=== PATIENT | female | born 1945 | race Caucasian/White ===

== ENCOUNTER 2017-05-11 10:47 | Inpatient (IN) ==
[2017-05-11 12:04] LABS: Basophils % 1.6 %; Eosinophils % 3.4 %; Immature Granulocytes % 0.4 % (0-4); Red Cell Distribution Width 16.4 % (11.5-14.5)
[2017-05-11 12:06] LABS: Basophils # 0.1 K/mcL (0.0-0.2); Eosinophils # 0.2 K/mcL (0.0-0.6); Hematocrit 40.1 % (35.3-44.9); Hemoglobin 12.5 g/dL (11.5-15.4); Immature Platelets 12.9 % (1.1-6.1); Lymphocytes # 0.4 K/mcL (0.6-4.6); Mean Corpuscular HGB Conc 31.2 g/dL (31.6-35.5); Mean Platelet Volume 13.4 fL (9.4-12.4); Monocytes # 0.7 K/mcL (0.0-1.3); Monocytes % 9.7 %; Neutrophils # 5.4 K/mcL (1.6-8.9); Red Blood Count 4.31 M/mcL (3.82-4.97); Segmented Neutrophils % 78.9 %
[2017-05-11] MEDS ORDERED: 0.9 % Sodium Chloride 250 ML IVC ONE (12:12)
[2017-05-11 12:15] LABS: Calcium 9.1 mg/dL (8.6-10.8); Potassium 5.1 mEq/L (3.5-4.5)
--- NOTE | 2017-05-11 12:16 | Emergency Department Note ---
START Narrative - START START: I examined this patient and my medical decision-making was reviewed with the Resident Physician. I agree with the documented findings, disposition and treatment plan as described except to the extent set forth below. Patient to ED with shortness of breath. Patient was listed under dialysis but they decided to the senior living to send her here instead. Patient states her shortness of breath feels better after her arrival. She is in no respiratory distress on exam. Lungs are diminished with rales. Plan. Cardiac workup. White blood cell count normal. Notified by nursing staff that her blood pressure drop. Systolic blood pressure in the 70s. No source of infection seen at this time. We will give her a small 250 bolus.
[2017-05-11 12:19] LABS: Platelet Count 75 K/mcL (140-400)
[2017-05-11] MEDS ORDERED: 0.9 % Sodium Chloride 250 ML IVC PRN (13:53)
--- NOTE | 2017-05-11 13:55 | Emergency Department Note ---
Disposition Clinical Impression: Elevated troponin Dyspnea Qualifiers: Dyspnea type: unspecified Qualified Code(s): R06.00 - Dyspnea, unspecified CHF (congestive heart failure) Qualifiers: Congestive heart failure type: systolic Congestive heart failure chronicity: unspecified congestive heart failure chronicity Qualified Code(s): I50.20 - Unspecified systolic (congestive) heart failure Disposition: Admitted As Inpatient Condition: Good SOB HPI - General Chief Complaint: ED Shortness of Breath/Dyspnea Stated Complaint: Dyspnea Time Seen by Provider: 05/11/17 10:50 Source: patient, EMS Limitations: no limitations Nursing Notes Reviewed: Yes Vital Signs Reviewed: Yes - History of Present Illness Patient presents for evaluation of shortness of breath. Patient is a dialysis patient that was going to be seen at a new dialysis center secondary to location and convenience. 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 The dialysis center was called and this is Dr. Kamara. The patient's shortness of breath was advised by the primary care physician to come to the emergency department for evaluation. She did not go to dialysis in order to come to the hospital for evaluation of hypoxia. On initial assessment patient has had a small increase in overall oxygen requirement. The patient has rails bilaterally. Mild pitting edema to the lower extremities. Patient is likely in fluid overload. Baseline labs and chest x-ray will be evaluated. - Related Data Home Medications Medication Instructions Recorded Confirmed Aspirin [Adult Low Dose Aspirin EC] 81 mg PO DAILY 02/14/15 05/11/17 Insulin Glargine,Hum.rec.anlog 10 unit SQ HS 02/14/15 05/11/17 [Lantus Solostar] Simvastatin [Zocor] 40 mg PO DAILY 02/14/15 05/11/17 Albuterol Sulfate [Proair Hfa] 2 puff BID PRN 02/17/15 05/11/17 Multivitamin/Iron/Folic Acid 1 each PO DAILY 02/17/15 05/11/17 [Centrum Complete Multivit Tab] Biotin 10 mg PO DAILY 05/11/17 05/11/17 Bumetanide [Bumex] 2 mg PO BID 05/11/17 05/11/17 Celecoxib [Celebrex] 100 mg PO BID 05/11/17 05/11/17 Insulin LISPRO [Humalog Kwikpen 6 unit SQ TID 05/11/17 05/11/17 U-100] Lactulose [Enulose] 30 ml PO BID 05/11/17 05/11/17 Lidocaine Patch [Lidoderm 5% patch] 1 each TP DAILY 05/11/17 05/11/17 Metoprolol XL (24 HR) Succ [Toprol 25 mg PO DAILY 05/11/17 05/11/17 XL] Midodrine HCl 10 mg PO DAILY 05/11/17 05/11/17 Ondansetron ODT [Zofran ODT] 4 mg PO BID PRN 05/11/17 05/11/17 Pantoprazole Sodium 40 mg PO DAILY 05/11/17 05/11/17 Sevelamer [Renvela] 800 mg PO TIDWM 05/11/17 05/11/17 Previous Rx's Medication Instructions Recorded HYDROcodone/Acet 5/325 mg [[place] 1 tab PO Q6H #14 tab 04/15/17 5-325 mg] Allergies Allergy/AdvReac Type Severity Reaction Status Date / Time Iodinated Contrast- Oral and Allergy Swelling Verified 02/17/15 11:02 IV Dye of [Iodinated Contrast Media - Lip/Tongue/Throat IV Dye] EUFEMIA Inhibitors AdvReac Hypotension Verified 02/17/15 11:02 adhesive tape AdvReac Rash Verified 02/17/15 11:05 Review of Systems: CONSTITUTIONAL: No weight loss, fever, chills, weakness or fatigue. HEENT: Eyes: No visual changes. Ears, Nose, Throat: No hearing loss, difficulty talking or unable to swallow. SKIN: No rash or itching. CARDIOVASCULAR: No chest pain, chest pressure or chest discomfort. No palpitations or edema. RESPIRATORY: Shortness of breath. GASTROINTESTINAL: No anorexia, nausea, vomiting or diarrhea. No abdominal pain or blood. GENITOURINARY: No burning on urination or hematuria. NEUROLOGICAL: No headache, dizziness, syncope, paralysis, ataxia, numbness or tingling in the extremities. No change in bowel or bladder control. MUSCULOSKELETAL: No muscle pain, back pain, joint pain or stiffness. Past Medical History - Past Medical History Medical history: Reports: arthritis, coronary artery disease, diabetes, dialysis , hypertension, renal disease, other Surgical history: Reports: coronary bypass (CABG), pacemaker/AICD, other ( Dialysis access) Psychiatric history: Reports: no psych history - Social History Smoking Status: Never smoker Smokeless Tobacco Status: No Alcohol use: Reports: none Drug use: Reports: none Physical Exam General: Well appearing, nontoxic, no acute distress Head: Normocephalic Atraumatic Eyes: PERRL, EOMI ENT: Airway patent, no stridor Neck: supple, no meningismus Chest: rales bilaterally. Cardiac: Regular rate and rhythm, no murmurs, rubs or gallops; mild pitting edema Abdomen: soft, nontender, nondistended; no guarding, rebound, or tenderness to percussion Musculoskeletal: Calves symmetric, nontender, no palpable cord Skin: No rash, normal skin tone Neuro: Alert and Oriented to person, place, and time; No focal deficit, CN 2-12 symmetric and intact - General Limitations: no limitations General appearance: alert Course - Reevaluation(s) Reevaluation #1: Patient has been treated with antibiotics secondary to previous line infection per patient. This line has been removed prior to being in the hospital.. Patient received a small fluid bolus in the emergency department. Her blood pressure is 98/52. - Consultations Consultation #1: Discussed with Dr. Kamara nurse practitioner who states that he will see the patient in conjunction with the hospitalist to admit to the hospitalist service. He has not actually seen the patient before. Consultation #2: Discussed with hospitalist, Dr. Miller, patient accepted for admission. Vital Signs Temperature 97.8 F 05/11/17 10:50 Pulse Rate 107 05/11/17 10:50 Respiratory Rate 20 05/11/17 10:50 Blood Pressure 122/106 05/11/17 10:50 O2 Sat by Pulse Oximetry 98 05/11/17 10:50 Temperature 98 F 05/11/17 18:29 Pulse Rate 97 05/11/17 14:00 Respiratory Rate 22 05/11/17 18:29 Blood Pressure 98/47 05/11/17 18:29 O2 Sat by Pulse Oximetry 99 05/11/17 14:00 Oxygen Delivery Oxygen Delivery Nasal Cannula Shortness of Breath/Dyspnea - Lab Data Result diagrams: 05/11/17 11:50 05/11/17 11:50 Lab Results 05/11/17 05/11/17 05/11/17 Range/Units 11:50 11:50 11:50 WBC 6.8 (4.3-11.1) K/mcL RBC 4.31 (3.82-4.97) M/mcL Hgb 12.5 (11.5-15.4) g/dL Hct 40.1 (35.3-44.9) % MCV 93.0 (83.0-100.0) fL MCH 29.0 (28.0-33.3) pg MCHC 31.2 L (31.6-35.5) g/dL RDW 16.4 H (11.5-14.5) % Plt Count 75 L (140-400) K/mcL MPV 13.4 H (9.4-12.4) fL Immature Gran % 0.4 (0-4) % Seg Neutrophils % 78.9 % Lymphocytes % 6.0 % Monocytes % 9.7 % Eosinophils % 3.4 % Basophils % 1.6 % Neutrophils # 5.4 (1.6-8.9) K/mcL Lymphocytes # 0.4 L (0.6-4.6) K/mcL Monocytes # 0.7 (0.0-1.3) K/mcL Eosinophils # 0.2 (0.0-0.6) K/mcL Basophils # 0.1 (0.0-0.2) K/mcL Immature Plt Fraction 12.9 H (1.1-6.1) % Sodium 139 (136-145) mEq/L Potassium 5.1 H (3.5-4.5) mEq/L Chloride 102 (98-109) mEq/L Carbon Dioxide 24 (19-29) mEq/L BUN 34 H (7-20) mg/dL Creatinine 4.69 H (0.57-1.11) mg/dL Est GFR ( Amer) 11 L (> 60) Est GFR (Non-Af Amer) 9 L (> 60) BUN/Creatinine Ratio 7 (6-26) Glucose 96 (70-99) mg/dL Calculated Osmolality 295 (280-300) Calcium 9.1 (8.6-10.8) mg/dL Troponin I 0.45 H* (0-0.03) ng/mL B-Natriuretic Peptide (0-100) pg/mL Hep Bs Antigen (Nonreactive) Hep Bs Antibody mIU/mL 05/11/17 05/11/17 Range/Units 11:50 14:22 WBC (4.3-11.1) K/mcL RBC (3.82-4.97) M/mcL Hgb (11.5-15.4) g/dL Hct (35.3-44.9) % MCV (83.0-100.0) fL MCH (28.0-33.3) pg MCHC (31.6-35.5) g/dL RDW (11.5-14.5) % Plt Count (140-400) K/mcL MPV (9.4-12.4) fL Immature Gran % (0-4) % Seg Neutrophils % % Lymphocytes % % Monocytes % % Eosinophils % % Basophils % % Neutrophils # (1.6-8.9) K/mcL Lymphocytes # (0.6-4.6) K/mcL Monocytes # (0.0-1.3) K/mcL Eosinophils # (0.0-0.6) K/mcL Basophils # (0.0-0.2) K/mcL Immature Plt Fraction (1.1-6.1) % Sodium (136-145) mEq/L Potassium (3.5-4.5) mEq/L Chloride (98-109) mEq/L Carbon Dioxide (19-29) mEq/L BUN (7-20) mg/dL Creatinine (0.57-1.11) mg/dL Est GFR ( Amer) (> 60) Est GFR (Non-Af Amer) (> 60) BUN/Creatinine Ratio (6-26) Glucose (70-99) mg/dL Calculated Osmolality (280-300) Calcium (8.6-10.8) mg/dL Troponin I (0-0.03) ng/mL B-Natriuretic Peptide 3725 H (0-100) pg/mL Hep Bs Antigen Nonreactive (Nonreactive) Hep Bs Antibody 0.24 mIU/mL
[2017-05-11] MEDS ORDERED: 0.9 % Sodium Chloride 1,000 ML PRIME SCH (14:00)
[2017-05-11] MEDS ORDERED: CeFAZolin Syr 2,000MG/20 ML 2,000 MG/20 ML SYRINGE IVPB SCH (14:30)
[2017-05-11] MEDS ORDERED: D5% in Water 1,000 ML IVC PRN (14:45)
[2017-05-11] MEDS ORDERED: Naloxone 0.4 MG/ML INJ IVP PRN (14:45)
[2017-05-11] MEDS ORDERED: Dextrose Gel 15 GM PO PRN ×2 (14:45)
[2017-05-11] MEDS ORDERED: *HR* Dextrose 50 % in Water (Syg) 50 ML SYRINGE IVP PRN (14:45)
--- NOTE | 2017-05-11 14:54 | Internal Med History&Physical ---
<Bull Shetty - Last Filed: 05/11/17 16:29> Date of Encounter: 05/11/17 Time of Encounter: 14:51 Assessment and Plan (1) CKD (chronic kidney disease) requiring chronic dialysis Current visit: No Status: Acute H/O ESRD requiring hemodialysis. She is a M,W,F HD patient. She presents today in fluid overload with pulmonary vascular congestion and BL pleural effusions, as well as BLE 1+ pitting edema. D/t these finding she will need HD today. Cr. 4.[address] Ni- plan is for HD today; both hospitalist and Nephrology will follow throughout hospital course Avoid additional nephrotoxins Consult PT/OT, and SS for assessment of functional capacity and return to short term rehab CBC, BMP in the am Further manage volume status with 2l fluid restriction; strict I&O; hold bumex for now Continue to closely monitor BP d/t hypotension upon arrival to ED today PT/OT, SS consulted to assist with transition of care following hospital stay (2) CHF (congestive heart failure) Current visit: No Status: Acute H/O CHF known EF of 20%. Has not had a cardiac workup in the last few years. She presents today with pulmonary vascular congestion and small BL pleural effusions. She reports that she has been having increasing SOB over the last few weeks. SOB has improved since arrival to ED with increased oxygen support. Obtain TTE for further evaluation; last KASSY was in 2006. Hold on diuresis for now; hemodialysis this afternoon Continuous tele, spo2 monitoring BMP CBC in am Qualifiers: Congestive heart failure type: systolic Congestive heart failure chronicity : unspecified congestive heart failure chronicity Qualified Code(s): I50.20 - Unspecified systolic (congestive) heart failure (3) Dyspnea Current visit: No Status: Acute Dyspnea began at approximately 0800 this morning. Has improved since arrival to ED. CXR revealed pulmonary vascular congestion with small BL pleural effusions concerning for CHF. She is now resting comfortably on 2LNC. Continue to monitor respiratory status and offer respiratory support PRN with goal to maintain O2 sats greater than 92%. See further plan above Qualifiers: Dyspnea type: unspecified Qualified Code(s): R06.00 - Dyspnea, unspecified (4) Hypoxia Current visit: Yes Status: Acute Continues to require 2LNC for respiratory support. Maintaining O2 saturation of 99%. Lungs are clear and diminished with rales in BL posterior bases. Continue to monitor, I expect that she will improve with removal of excessive fluid. (5) Hypotension Current visit: No Status: Acute Hypotensive upon arrival to ED with SBP in the 80's. She received a 250cc NS bolus and SBP is now trending in the 90's. Patient reports that she is chronically hypotensive. Continue to monitor. She is currently hemodynamically stable at her reported baseline. I will hold BB at this time d/ t SBP upon arrival. Qualifiers: Hypotension type: unspecified hypotension type Qualified Code(s): I95.9 - Hypotension, unspecified (6) Hyperkalemia Current visit: No Status: Acute hyperkalemia secondary to ESRD. K+5.1 on todays metabolic panel. She will receive HD this afternoon. Continues to be NSR. Recheck metabolic panel in the am. (7) Elevated troponin Current visit: No Status: Acute Likely elevated d/t CKD. No c/o CP or pressure however d/t risk factors, and c/ o SOB will continue to trend troponins. (8) DM (diabetes mellitus) Current visit: No Status: Acute Continue basal insulin at home dose. Start LSSIC with AC/HS accucheck and diabetic/renal diet. Qualifiers: Diabetes mellitus type: type 2 Diabetes mellitus complication status: without complication Diabetes mellitus assisted insulin use: unspecified intermediate accountant insulin use status Qualified Code(s): E11.9 - Type 2 diabetes mellitus without complications (9) CAD (coronary artery disease) Current visit: No Status: Acute Continue ASA, BB, plavix Qualifiers: Coronary Disease-Associated Artery/Lesion type: bypass graft [place] vs. transplanted heart: [place] heart Associated angina: without angina Qualified Code(s): I25.810 - Atherosclerosis of coronary artery bypass graft(s) without angina pectoris (10) Streptococcal infection, unspecified site Current visit: Yes Status: Acute She is reporting a streptococcal infection in the spine but she is unsure of location. She was recently at [facility] and was being treated with Ancef 2gm, on tuesday and tuesday with hemodialysis and 3gm on tuesday with HD. I have requested a release of medical records for further review. She may need an ID consult while inpatient to further assist with treatment and management. As of this time nephrology has ordered the 2gm ancef dose with HD. She is supposed to get ancef with HD until May and cefdinir 300 mg twice a day on days she does not and hemodialysis until May per [facility] orders. She does not have any leukocytosis and does not appear toxic. (11) DVT prophylaxis Current visit: Yes Status: Acute EPCD's Internal Medicine - H&P: HPI Chief complaint: SOB Admitted From: Home Plans for Post Hospital Care: Home History of present illness: Ms. Andres is a 71 year old female with a PMH of arthritis, CAD, DM, HD, HTN , ESRD, prior end STEMI, CABG, pacer with AICD and congestive heart failure. She presented to [facility] today with shortness of breath with began approximately 0800 this morning. She has noticed that over the last couple of weeks she has had increasing shortness of breath but has been tolerable and has not required oxygen support. However, this morning she woke up and was short of breath and hypoxic requiring oxygen support to maintain O2 saturations. She denies any fever, chills, chest pain, abdominal pain, extremity swelling, cough. She admits to increasing fatigue, dyspnea and orthopnea. She is a hemodialysis patient was previously being treated in [place] where she received her last hemodialysis on Tuesday this week. She has recently changed to Dr. Kamara for nephrology but she reports that she has not had her initial visit yet. Today was supposed with a first visit however due to shortness of breath she came to the ED. Workup reveals pulmonary vascular congestion and small bilateral pleural effusions. Additionally she had 1+ pitting edema bilateral lower extremities. She appears to be in fluid overload, congestive heart failure. Additionally, she notes that she was recently treated at [facility] for streptococcal infection in her spine she is unsure location. Prior to this event she was ambulatory with a walker, however she is not able to walk since and has been an inpatient short-term rehabilitation. She is supposed to be on long-term antiobiotics with Ancef 2gm on Tue, Tue, and 3gm on Tuesday with HD. Past Med Surg Social Fam HX - Past Medical History Medical history: arthritis, coronary artery disease, diabetes, dialysis, hypertension, renal disease, other Psychiatric history: no psych history - Past Surgical History Surgical History: coronary bypass (CABG), pacemaker/AICD, other (Dialysis access ) - Social History Smoking Status: Never smoker Smokeless Tobacco Status: No Alcohol use: none Drug use: none - Family History Mother Hx Family Cardiac Disorders: Yes (CAD) Internal Medicine - H&P: Meds Aspirin [Adult Low Dose Aspirin EC] 81 mg PO DAILY 02/14/15 [History] Insulin Glargine,Hum.rec.anlog [Lantus Solostar] 10 unit SQ HS 02/14/15 [History ] Simvastatin [Zocor] 40 mg PO DAILY 02/14/15 [History] Albuterol Sulfate [Proair Hfa] 2 puff BID PRN 02/17/15 [History] Multivitamin/Iron/Folic Acid [Centrum Complete Multivit Tab] 1 each PO DAILY [History] HYDROcodone/Acet 5/325 mg [[place] 5-325 mg] 1 tab PO Q6H #14 tab 04/15/17 [Rx] Biotin 10 mg PO DAILY 05/11/17 [History] Bumetanide [Bumex] 2 mg PO BID 05/11/17 [History] Celecoxib [Celebrex] 100 mg PO BID 05/11/17 [History] Insulin LISPRO [Humalog Kwikpen U-100] 6 unit SQ TID 05/11/17 [History] Lactulose [Enulose] 30 ml PO BID 05/11/17 [History] Lidocaine Patch [Lidoderm 5% patch] 1 each TP DAILY 05/11/17 [History] Metoprolol XL (24 HR) Succ [Toprol XL] 25 mg PO DAILY 05/11/17 [History] Midodrine HCl 10 mg PO DAILY 05/11/17 [History] Ondansetron ODT [Zofran ODT] 4 mg PO BID PRN 05/11/17 [History] Pantoprazole Sodium 40 mg PO DAILY 05/11/17 [History] Sevelamer [Renvela] 800 mg PO TIDWM 05/11/17 [History] 3 Allergy/AdvReac Type Severity Reaction Status Date / Time Iodinated Contrast- Oral and Allergy Swelling Verified 02/17/15 11:02 IV Dye of [Iodinated Contrast Media - Lip/Tongue/Throat IV Dye] EUFEMIA Inhibitors AdvReac Hypotension Verified 02/17/15 11:02 adhesive tape AdvReac Rash Verified 02/17/15 11:05 All Systems PM: A 10-system review of systems was performed and is negative for pertinent findings except as documented above in the HPI. - Constitutional Constitutional: fatigue, weakness, no chills, no fever(s), no weight gain, no weight loss - Cardiovascular Cardiovascular ROS IM: dyspnea, orthopnea, no chest pain, no diaphoresis, no lightheadedness, no palpitations, no syncope - Respiratory Respiratory: dyspnea, no cough, no wheezing, no chest congestion, no excessive phlegm production - Gastrointestinal Gastrointestinal: no abdominal pain, no diarrhea, no hematemesis, no hematochezia, no melena, no nausea, no vomiting - Genitourinary Genitourinary: other (ANURIC) - Musculoskeletal Musculoskeletal ROS IM: arthralgias, myalgias (LEFT HIP) - Integumentary Integumentary IM: erythema Additional comments: BLE - Neurological Neurological ROS: weakness, no dizziness, no headache(s) - Constitutional Vitals: Temp Pulse Resp BP Pulse Ox 97.8 F 97 16 93/59 99 05/11/17 10:50 05/11/17 14:00 05/11/17 14:00 05/11/17 14:00 05/11/17 14:00 General appearance: Present: cooperative, mild distress, A&O X 3, answers questions appropriately - Head Head exam: Present: atraumatic, normocephalic - Neck Neck exam general surgery: Present: supple, trachea midline. Absent: lymphadenopathy - Respiratory Respiratory exam: Present: CTAB, rales (FINE RALES POSTERIOR BILATERAL BASES). Absent: accessory muscle use, rhonchi, wheezes - Cardiovascular Cardiovascular exam: Present: RRR, +S1, +S2. Absent: diastolic murmur, gallop, rubs, systolic murmur - GI/Abdominal GI/Abdominal exam: Present: normal bowel sounds, soft, no peritoneal signs. Absent: distended, firm, guarding, tenderness - Extremities Exam Extremities exam: Present: pedal edema (BLE 2+), warm, radial pulses palpable and symmetrical (1+). Absent: calf tenderness, normal capillary refill ( SLUGGISH), tenderness - Expanded Lower Extremities Exam Lower Leg exam: Present: erythema, swelling (DRY AND SCALY). Absent: tenderness Internal Med - H&P Results - Labs CBC & Chem 7: 05/11/17 11:50 05/11/17 11:50 - Diagnostic Studies Chest x-ray Status: image reviewed by me Additional comments: Cardiomegaly and pulmonary edema; small bilateral pleural effusion with concerns for CHF <Randal Miller - Last Filed: 05/12/17 07:37> Date of Encounter: 05/11/17 Internal Medicine - H&P: HPI History of present illness: Ms. Andres is a 71 year old female All Systems PM: A 10-system review of systems was performed and is negative for pertinent findings except as documented above in the HPI. - Constitutional Vitals: Temp Pulse Resp BP Pulse Ox 97.6 F 73 20 103/57 98 05/12/17 07:09 05/12/17 07:09 05/12/17 07:09 05/12/17 07:09 05/12/17 07:09 Internal Med - H&P Results - Labs CBC & Chem 7: 05/12/17 00:12 05/12/17 00:12 Labs: Short CBC 05/12/17 Range/Units 00:12 WBC 7.8 (4.3-11.1) K/mcL Hgb 12.0 (11.5-15.4) g/dL Hct 38.3 (35.3-44.9) % Plt Count 70 L (140-400) K/mcL BMP 05/12/17 00:12 Sodium 137 Potassium 4.4 Chloride 98 Carbon Dioxide 27 BUN 25 H Creatinine 3.86 H Glucose 93 Calcium 9.3 Cardiac Enzymes 05/11/17 05/12/17 05/12/17 Range/Units 17:45 00:12 06:36 Troponin I 0.68 H* 0.73 H* 0.76 H* (0-0.03) ng/mL - Attending Attestation 71yo female who presented with hx of ESRD on HD who presented with SOB, pulm vascular congestion due to being fluid overloaded. Nephrology as been consulted for dialysis, We will resume home meds as deemed appropriated. I have examined patient and agree with REGULATORY PRODUCT MANAGER documentation.
[2017-05-11 15:04] LABS: Hepatitis B Surface Antibody 0.24 mIU/mL; Hepatitis B Surface Antigen Nonreactive (Nonreactive)
--- NOTE | 2017-05-11 15:09 | Electrocardiograph Report ---
[facility] Test Date: 2017-05-11 Pat Name: Sonya Andres Department: [id number] Room: 2A13 Gender: F Electrical Software Engineer: : [id number] Requested By: Aiden Ramirez Order Number: [id number] Reading MD: Long Singer MD Measurements Intervals [place] Rate: 111 P: OR: 0 QRS: 270 QRSD: 165 T: 73 QT: 412 QTc: 478 Interpretive Statements ATRIAL FIBRILLATION WITH RAPID VENTRICULAR RESPONSE WITH ABERRANT CONDUCTION OR VENTRICULAR PREMATURE COMPLEXES MARKED RIGHT AXIS DEVIATION [QRS AXIS > 100] RIGHT BUNDLE BRANCH BLOCK [120+ ms QRS DURATION, UPRIGHT V1, 40+ ms S IN I/aVL/V4/V5/V6] INFERIOR MYOCARDIAL INFARCTION [40+ ms Q WAVE AND/OR ST/T ABNORMALITY IN II/aVF], OF INDETERMINATE AGE ANTEROLATERAL MYOCARDIAL INFARCTION [40+ ms Q WAVE IN I/aVL/V3-V6], Electronically Signed On 05-11-2017 15:08:36 EST by Long Singer MD
[2017-05-11] MEDS ORDERED: Ondansetron ODT 4 MG TAB.RAPDIS PO PRN (15:42)
[2017-05-11] MEDS: *HR* HYDROcodone/Acet 5/325 mg TABLET PO SCH ×2 (17:33→20:30)
[2017-05-11] MEDS: Insulin LISPRO 300 UNITS/3 ML VIAL SQ SCH ×2 (17:50→23:13)
[2017-05-11] MEDS ORDERED: ceFAZolin 2,000 MG in Water for inj. (sterile) 20 ML IVP SCH (19:45)
[2017-05-11] MEDS: Celecoxib 100 MG CAPSULE PO SCH (20:30)
[2017-05-11] MEDS: Lactulose Oral Soln 20 GM/30 ML UDC PO SCH (20:30)
[2017-05-11] MEDS: Insulin DETEMIR 100 UNIT/ML X5UNITS SQ SCH (20:31)
[2017-05-11] MEDS ORDERED: CeFAZolin Premix DUPLEX 2,000 MG/50 ML BAG IVPB ONE (23:00)
[2017-05-12 00:17] LABS: Hematocrit 38.3 % (35.3-44.9); Mean Corpuscular HGB Conc 31.3 g/dL (31.6-35.5); Mean Corpuscular Hemoglobin 29.1 pg (28.0-33.3); Mean Platelet Volume 12.9 fL (9.4-12.4); Red Blood Count 4.12 M/mcL (3.82-4.97); Red Cell Distribution Width 16.5 % (11.5-14.5)
[2017-05-12 00:19] LABS: Platelet Count 70 K/mcL (140-400)
[2017-05-12 00:29] LABS: Calcium 9.3 mg/dL (8.6-10.8); Potassium 4.4 mEq/L (3.5-4.5)
[2017-05-12] MEDS: *HR* HYDROcodone/Acet 5/325 mg TABLET PO SCH ×2 (03:04→09:20)
[2017-05-12] MEDS: Insulin LISPRO 300 UNITS/3 ML VIAL SQ SCH ×4 (07:30→20:38)
--- NOTE | 2017-05-12 08:58 | Nephrology Consult Note ---
Date of Encounter: 05/12/17 Time of Encounter: 08:20 Assessment and Plan (1) ESRD (end stage renal disease) on dialysis Current Visit: Yes Status: Acute ESRD-chronic HD on MWF schedule. No HD today. CHF, had HD yesterday. Elevated troponins. KASSY today. 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 (2) Streptococcal infection, unspecified site Current Visit: Yes Status: Acute History of Present Illness - Reason for Consult end stage renal disease - History of Present Illness Ms. Andres is a 71 year old female with ESRD who is new to and was to start HD on a MWF schedule at [facility] yesterday due to location of current nursing facility. Other PMH- arthritis, coronary artery disease, diabetes, dialysis, hypertension, CABG, pacemaker/AICD, Dialysis access. However , developed shortness of breath and chest discomfort and was transported to [place]. CXR-cardiomegaly, pulmonary vascular congestion, small bilateral pleural effusions. Troponins 0.45. Admitted with CHF, fluid overload and had HD yesterday. She recently treated at [facility] for spinal infection- streptococcal. Currently on Ancef on HD days and Ceftinir on non HD days. This morning she is alert. States she never had chest discomfort, just shortness of breath and remains somewhat tachypneic this morning. She states back pain ongoing. Transport in to take patient for KASSY. Past Med Surg Social Fam HX - Past Medical History Medical history: arthritis, coronary artery disease, diabetes, dialysis, hypertension, renal disease, other Psychiatric history: no psych history - Past Surgical History Surgical History: coronary bypass (CABG), pacemaker/AICD, other (Dialysis access ) - Social History Smoking Status: Never smoker Smokeless Tobacco Status: No Alcohol use: none Drug use: none - Family History Mother Hx Family Cardiac Disorders: Yes (CAD) Medications and Allergies Aspirin [Adult Low Dose Aspirin EC] 81 mg PO DAILY 02/14/15 [History] Insulin Glargine,Hum.rec.anlog [Lantus Solostar] 10 unit SQ HS 02/14/15 [History ] Simvastatin [Zocor] 40 mg PO DAILY 02/14/15 [History] Albuterol Sulfate [Proair Hfa] 2 puff BID PRN 02/17/15 [History] Multivitamin/Iron/Folic Acid [Centrum Complete Multivit Tab] 1 each PO DAILY [History] HYDROcodone/Acet 5/325 mg [[place] 5-325 mg] 1 tab PO Q6H #14 tab 04/15/17 [Rx] Biotin 10 mg PO DAILY 05/11/17 [History] Bumetanide [Bumex] 2 mg PO BID 05/11/17 [History] Celecoxib [Celebrex] 100 mg PO BID 05/11/17 [History] Insulin LISPRO [Humalog Kwikpen U-100] 6 unit SQ TID 05/11/17 [History] Lactulose [Enulose] 30 ml PO BID 05/11/17 [History] Lidocaine Patch [Lidoderm 5% patch] 1 each TP DAILY 05/11/17 [History] Metoprolol XL (24 HR) Succ [Toprol XL] 25 mg PO DAILY 05/11/17 [History] Midodrine HCl 10 mg PO DAILY 05/11/17 [History] Ondansetron ODT [Zofran ODT] 4 mg PO BID PRN 05/11/17 [History] Pantoprazole Sodium 40 mg PO DAILY 05/11/17 [History] Sevelamer [Renvela] 800 mg PO TIDWM 05/11/17 [History] 3 Allergy/AdvReac Type Severity Reaction Status Date / Time Iodinated Contrast- Oral and Allergy Swelling Verified 02/17/15 11:02 IV Dye of [Iodinated Contrast Media - Lip/Tongue/Throat IV Dye] EUFEMIA Inhibitors AdvReac Hypotension Verified 02/17/15 11:02 adhesive tape AdvReac Rash Verified 02/17/15 11:05 Review of Systems All Systems: reviewed and no additional remarkable complaints except as stated Exam - Vital Signs Vital signs: Initial Vital Signs Temp Pulse Resp BP Pulse Ox 97.8 F 107 20 122/106 98 05/11/17 10:50 05/11/17 10:50 05/11/17 10:50 05/11/17 10:50 05/11/17 10:50 Vital Signs - Last 8 Hours Temp Pulse Resp BP Pulse Ox 05/12/17 07:09 97.6 F 73 20 103/57 98 05/12/17 03:38 97.2 F L 67 15 95/61 97 Intake and Output 05/11/17 05/12/17 05/12/17 23:59 07:59 15:59 Intake Total 120 / 120 Output Total 2099 Balance -1979 Intake: Oral 120 / 120 Output: Urine 0 / 0 Total Dialysis (HD) Output 2099 Other: Stool Size Small Large Stool Consistency formed formed Stool Color Brown Brown Dark Red Blood # Bowel Movements 1 # Bowel Movement Diapers 1 Weight 86.7 kg Blood Glucose* 104 60 Hemodialysis Net Fluid Removed 1500 (mL) Patient Weight 05/12/17 23:59 Weight 86.7 kg - General Appearance General appearance: well-developed, well-nourished, appears started age, obese EENT: mucous membranes moist Neck: no JVD Respiratory: rhonchi Cardiology: edema, regular rate, regular rhythm Gastrointestinal: normoactive bowel sounds, no tenderness, no guarding Integumentary: warm and dry Neurologic: alert and oriented x3 Psychiatric: mood/affect appropriate, cooperative Results - Lab Results 05/12/17 00:12 05/12/17 00:12 Most recent lab results Calcium 9.3 mg/dL (8.6-10.8) 05/12/17 00:12 Consult Discharge Plan - Plan Referrals: Luz Maria Roberts DO [Primary Care Provider] - (Patient will follow up with ECF PCP)
[2017-05-12] MEDS ORDERED: Cefdinir 300 MG CAPSULE PO SCH ×2 (09:00)
[2017-05-12] MEDS ORDERED: BIOTIN 10 MG PO SCH (09:00)
[2017-05-12] MEDS ORDERED: [UNRECOGNIZED DRUG - OTHER] PO SCH (09:00)
[2017-05-12] MEDS: Multivit/Ca/Min/Fe/FA 1 TAB TABLET PO SCH (09:20)
[2017-05-12] MEDS: Celecoxib 100 MG CAPSULE PO SCH (09:20)
[2017-05-12] MEDS: Aspirin Enteric Coated 81 MG Tablet PO SCH (09:21)
[2017-05-12] MEDS: Lactulose Oral Soln 20 GM/30 ML UDC PO SCH (09:21)
--- NOTE | 2017-05-12 09:37 | Internal Med Progress Note ---
<Gian Shelby - Last Filed: 05/12/17 09:31> Date of Encounter: 05/12/17 Time of Encounter: 08:15 - Constitutional Vitals: Temp Pulse Resp BP Pulse Ox 97.6 F 73 20 103/57 98 05/12/17 07:09 05/12/17 07:09 05/12/17 07:09 05/12/17 07:09 05/12/17 07:09 General appearance: Present: cooperative, mild distress, A&O X 3, answers questions appropriately Internal Medicine: Result - Labs CBC & Chem 7: 05/12/17 00:12 05/12/17 00:12 Labs: Short CBC 05/12/17 Range/Units 00:12 WBC 7.8 (4.3-11.1) K/mcL Hgb 12.0 (11.5-15.4) g/dL Hct 38.3 (35.3-44.9) % Plt Count 70 L (140-400) K/mcL BMP 05/12/17 00:12 Sodium 137 Potassium 4.4 Chloride 98 Carbon Dioxide 27 BUN 25 H Creatinine 3.86 H Glucose 93 Calcium 9.3 Cardiac Enzymes 05/11/17 05/12/17 05/12/17 Range/Units 17:45 00:12 06:36 Troponin I 0.68 H* 0.73 H* 0.76 H* (0-0.03) ng/mL Consult Discharge Plan - Plan Referrals: Luz Maria Roberts DO [Primary Care Provider] - (Patient will follow up with ECF PCP) <Dustin Kang - Last Filed: 05/12/17 15:07> Date of Encounter: 05/12/17 - Assessment and plan (1) CHF (congestive heart failure) Current Visit: Yes Status: Acute Assessment and plan: acute pulmonary edema 2ry to volume overload, acute systolic CHF exacerbation , valvular disease uses Bumex at home removed volume with HD fluid restriction BMP>3000 ECHO: LVEF 25%. Severe LV systolic dysfunction. Atypical septal motion consistent with paced rhythm. Indeterminate diastolic function. Moderately enlarged RV with mild-moderate reduction in function. Severe tricuspid regurgitation. Moderate mitral regurgitation. Mild-moderate pulmonic regurgitation. Probably underestimated RVSP, 32 mmHg. A device lead was visualized in the right atrium and right ventricle. Pleural effusion. Qualifiers: Congestive heart failure type: systolic Congestive heart failure chronicity : acute on chronic Qualified Code(s): I50.23 - Acute on chronic systolic ( congestive) heart failure (2) Elevated troponin Current Visit: Yes Status: Acute Assessment and plan: likely secondary to demand ischemia cardiology recommendations appreciated in the setting of Hx of prior stents and ischemic CMP resume metoprolol continue ASA denies CP (3) Streptococcal infection, unspecified site Current Visit: Yes Status: Acute Assessment and plan: treptococcal infection in the spine, possible discitis. She was recently at [place] and was being treated with Ancef 2gm, on tuesday and tuesday with hemodialysis and 3gm on tuesday with HD also 2gm of ancef dose with HD. She is supposed to get ancef with HD until May and cefdinir 300 mg twice a day on days she does not have hemodialysis until May per [facility] orders. (4) Breast cancer Current Visit: No Status: Acute Qualifiers: Breast location: unspecified site of breast Estrogen receptor status: unspecified Patient sex: female Laterality: unspecified laterality Qualified Code(s): C50.919 - Malignant neoplasm of unspecified site of unspecified female breast (5) CAD (coronary artery disease) Current Visit: No Status: Acute Qualifiers: Coronary Disease-Associated Artery/Lesion type: bypass graft [place] vs. transplanted heart: [place] heart Associated angina: without angina Qualified Code(s): I25.810 - Atherosclerosis of coronary artery bypass graft(s) without angina pectoris (6) ESRD (end stage renal disease) on dialysis Current Visit: Yes Status: Acute Assessment and plan: followed by Dr Ni - Subjective Interval history: Stable, denies any chest pain, no abdominal pain, makes a very little amount of urine, feels less short of breath, no fevers overnight - Constitutional Vitals: Temp Pulse Resp BP Pulse Ox 97.8 F 99 20 100/64 95 05/12/17 11:04 05/12/17 11:04 05/12/17 11:04 05/12/17 11:04 05/12/17 11:04 - Head Head exam: Present: atraumatic, normocephalic - Eye Eye exam: Present: PERRL, conjuntiva pink, sclera anicteric Pupils: Present: PERRL - Neck Neck exam general surgery: Present: supple, trachea midline. Absent: lymphadenopathy - Respiratory Respiratory exam: Present: decreased breath sounds (diminished breath sound, no wheezing), CTAB. Absent: accessory muscle use, rales, rhonchi - Cardiovascular Cardiovascular exam: Present: RRR, +S1, +S2. Absent: diastolic murmur, gallop, rubs, systolic murmur - GI/Abdominal GI/Abdominal exam: Present: normal bowel sounds, soft, no peritoneal signs. Absent: distended, tenderness - Extremities Exam Extremities exam: Present: warm, radial pulses palpable and symmetrical. Absent : calf tenderness, cyanotic, pedal edema Additional comments: left upper extremity AV fistula - Neurological Exam Neurological exam: Present: CN II-XII intact, oriented X3, no focal deficits. Absent: pronater drift, facial droop, speech deficit - Skin Skin exam: Present: dry, intact Internal Medicine: Result - Labs CBC & Chem 7: 05/12/17 00:12 05/12/17 00:12 Labs: Short CBC 05/12/17 Range/Units 00:12 WBC 7.8 (4.3-11.1) K/mcL Hgb 12.0 (11.5-15.4) g/dL Hct 38.3 (35.3-44.9) % Plt Count 70 L (140-400) K/mcL BMP 05/12/17 00:12 Sodium 137 Potassium 4.4 Chloride 98 Carbon Dioxide 27 BUN 25 H Creatinine 3.86 H Glucose 93 Calcium 9.3 Cardiac Enzymes 05/11/17 05/12/17 05/12/17 Range/Units 17:45 00:12 06:36 Troponin I 0.68 H* 0.73 H* 0.76 H* (0-0.03) ng/mL - Impressions Impressions Echocardiogram 05/12/17 15:41 Impressions: LVEF 25%. Severe LV systolic dysfunction. Atypical septal motion consistent with paced rhythm. Indeterminate diastolic function. Moderately enlarged RV with mild-moderate reduction in function. Severe tricuspid regurgitation. Moderate mitral regurgitation. Mild-moderate pulmonic regurgitation. Probably underestimated RVSP, 32 mmHg. A device lead was visualized in the right atrium and right ventricle. Pleural effusion. No prior echo for comparison. Left Ventricular Wall Motion: Rest Echo Findings The apex, apical inferior, mid inferior, basal inferior, apical anterior, mid anterior, basal anterior, apical lateral, mid anterior lateral, basal anterior lateral, mid inferior lateral and basal inferior lateral maldonado were hypokinetic. The apical septal, mid inferior septal, basal inferior septal, mid anterior septal and basal anterior septal maldonado were dyskinetic. Findings: Study Quality * Technically challenging windows. ECG Findings * Paced rhythm. Left Ventricle * Atypical septal motion consistent with paced rhythm. * Normal LV size and wall thickness. * Indeterminate diastolic function. * LVEF 25%. Right Ventricle * Moderately enlarged with mild-moderate reduction in function. Left Atrium * Moderately-severely enlarged. Right Atrium * Severely dilated right atrium. Aortic Valve * No aortic regurgitation. * Trileaflet aortic valve. * No aortic stenosis. Tricuspid Valve * Normal tricuspid valve structure. * Severe tricuspid regurgitation. * No pulmonary hypertension. * Estimated RA pressure is 8 mmHg. * Estimated RVSP is 32 mmHg. Pulmonic Valve * Pulmonic valve is not well visualized. * No pulmonic stenosis. * Mild-moderate pulmonic regurgitation. Pulmonary Artery * Pulmonary artery not well visualized. Aorta * Normally sized aortic root. Pericardium * There is a trivial pericardial effusion present. Device lead * A device lead was visualized in the right atrium and right ventricle. Mitral Valve * Moderate mitral regurgitation. * No mitral stenosis. * Mildly thickened mitral valve leaflets. Interatrial Septum * No evidence of PFO by color Doppler. IVC * The IVC is dilated. * < 50% respiratory change.
[2017-05-12] MEDS ORDERED: *HR* HYDROcodone/Acet 5/325 mg TABLET PO PRN ×2 (11:41→14:15)
[2017-05-12] MEDS: Acetaminophen 325 MG TABLET PO PRN ×2 (14:46→20:58)
--- NOTE | 2017-05-12 16:32 | Electrocardiograph Report ---
[address] [place] [address] Test Date: 2017-05-11 Pat Name: Sonya Andres Department: 112 Room: 2A13 Gender: F Operations Director: GURPREET : 1945 Requested By: Dustin Kang Order Number: [id number] Reading MD: Julieth Grande Measurements Intervals [place] Rate: 92 P: [place]: 0 QRS: -81 QRSD: 172 T: 77 QT: 442 QTc: 491 Interpretive Statements ATRIAL FIBRILLATION RIGHT BUNDLE BRANCH BLOCK LATERAL MYOCARDIAL INFARCTION, OF INDETERMINATE AGE INFERIOR MYOCARDIAL INFARCTION, OF INDETERMINATE AGE Electronically Signed On 05-12-2017 16:31:02 EST by Julieth Grande
[2017-05-12] MEDS: *HR* Heparin 5,000 UNIT/ML VIAL SQ SCH (17:03)
[2017-05-12] MEDS: Insulin DETEMIR 100 UNIT/ML X5UNITS SQ SCH (20:39)
[2017-05-13 04:51] LABS: Mean Corpuscular Hemoglobin 28.9 pg (28.0-33.3)
[2017-05-13 04:53] LABS: Hematocrit 40.3 % (35.3-44.9); Hemoglobin 12.6 g/dL (11.5-15.4); Immature Platelets 13.1 % (1.1-6.1); Mean Corpuscular HGB Conc 31.3 g/dL (31.6-35.5); Mean Corpuscular Volume 92.4 fL (83.0-100.0); Red Blood Count 4.36 M/mcL (3.82-4.97); Red Cell Distribution Width 16.4 % (11.5-14.5)
[2017-05-13] MEDS: Acetaminophen 325 MG TABLET PO PRN (04:55)
[2017-05-13] MEDS: *HR* Heparin 5,000 UNIT/ML VIAL SQ SCH (04:55)
[2017-05-13 06:01] LABS: Calcium 9.7 mg/dL (8.6-10.8); Potassium 5.2 mEq/L (3.5-4.5)
[2017-05-13] MEDS ORDERED: 0.9 % Sodium Chloride 1,000 ML IVC SCH (08:00)
[2017-05-13] MEDS ORDERED: Vancomycin 1 EACH in D5% in Water 250 ML IVPB SCH (08:00)
[2017-05-13] MEDS ORDERED: 0.9 % Sodium Chloride 250 ML IVC PRN (08:07)
[2017-05-13] MEDS: Multivit/Ca/Min/Fe/FA 1 TAB TABLET PO SCH (08:50)
[2017-05-13] MEDS: Insulin LISPRO 300 UNITS/3 ML VIAL SQ SCH ×2 (08:50→12:56)
[2017-05-13] MEDS ORDERED: Metoprolol XL (24 HR) Succ 25 MG TAB.ER.24H PO SCH (09:00)
[2017-05-13] MEDS ORDERED: 0.9 % Sodium Chloride 1,000 ML ONE (09:01)
--- NOTE | 2017-05-13 09:38 | Cardiology Consult Note ---
Addendum entered and electronically signed by Marcelo Johnston CNP 05/13/17 10:55: New diagnosis now of possible septic shock, awaiting transfer to [facility] for potential spine surgery given infection. Infection likely driving RVR. No IV access. Will stop heparin and amio orders since awaiting [facility] transfer. Original Note: Date of Encounter: 05/13/17 Time of Encounter: 09:34 Assessment and Plan (1) CHF (congestive heart failure) Current Visit: Yes Status: Acute Per pt, known prior EF 20%. Echo this admission EF 25%. No prior comparison from [facility] records. ICMP listed [place] [facility] [place], but last EF not documented. ESRD on dialysis. No urine output has been recorded. Recommend optimizing fluid volume status per fluid removal in dialysis. BNP 3725. Chest CT moderate bilateral pleural effusions with associated atelectasis and subcutaneous edema, cardiomegaly. Recommend Strict I/Os, Na and fluid restriction, daily weights. Qualifiers: Congestive heart failure type: systolic Congestive heart failure chronicity : acute on chronic Qualified Code(s): I50.23 - Acute on chronic systolic ( congestive) heart failure (2) Atrial fibrillation with RVR Current Visit: Yes Status: Acute Per prior records, hx of PAF. A-Fib RVR currently, HR 130s. BB held this AM due to hypotension. BP 80s systolic. 12 hr tele AVG HR 120, A-Fib. Will load with IV amio, standard gtt protocol over next 24 hours in attempt to help with rate control since she is hypotensive and will not tolerate other rate control strategies. [id number] (Age, Female, HTN, DM, CHF, TIA). High CVA risk. Currently on ASA only and subq heparin for DVT prophylaxis. Per [facility] [place], hx of anemia and transfusion in the past. H&H stable currently. Will start heparin gtt for now, monitor H&H closely and further discuss if pt is candidate for intermission coordinator anticoagulation--Coumadin. (3) Ischemic cardiomyopathy Current Visit: Yes Status: Acute Chronic. Per pt, EF previously 20%. Current echo EF 25%. Hx of CABG and PCI. ICD in place. Continue BB as BP tolerates. Not on ACEi due to hypotension. (4) Elevated troponin Current Visit: Yes Status: Acute Troponin peaked at 0.76, now downtrending, 0.67. Suspect demand ischemia in setting of ESRD on dialysis, fluid overload/CHF exacerbation. Nondiagnostic for ACS. Per pt, EF known to be 20% previously. Echo this admission EF 25%, severe TR. Reviewed [facility] records. One of her [facility] [place] IC[place], CAD with hx of CABG in diagnoses, but does not list most recent EF. Most recently follows with [facility]. Pt wants medical management, declines further invasive evaluations. Will need to rediscuss code status and goals of care. (5) CAD (coronary artery disease) Current Visit: No Status: Acute Hx of CABG and PCI. Denies chest pain. Continue ASA, Statin, BB as BP allows. Qualifiers: Coronary Disease-Associated Artery/Lesion type: bypass graft [place] vs. transplanted heart: [place] heart Associated angina: without angina Qualified Code(s): I25.810 - Atherosclerosis of coronary artery bypass graft(s) without angina pectoris Discussion w patient/family: The assessment and plan as outlined above was discussed with the patient and/or family members who expressed understanding and agreement. All questions were answered. Thank you for involving us in the care of your patient. Please call with any questions. I will discuss all the above with Dr. Dong and make changes as necessary. History of Present Illness Consult date: 05/13/17 Requesting physician: Dustin Kang Consult reason: elevated troponin, chf Chief complaint: dyspnea, left hip pain History of present illness: Ms. Andres is a 71 year old female with a PMH of arthritis, CAD s/p CABG and PCI, DM, HD, HTN, ESRD on dialysis, PAF, AICD and known hx of systolic CHF, ICMP, reported previous EF 20%, TIA. Pt tells me the chief complaint that brought her in was left sided hip pain, and that she became more short of breath once in the hospital. per H&P, worsening shortness of breath in recent weeks and worsened morning of admission. She denies chest pain or cough. Recently treated at [facility] for reported streptococcal infection in her spine. Pt tells me she had CABG in 2003, ICD placement in 2006 and has had PCI x 3 since CABG. Unsure when last C was. Echo resulted--EF 25%, moderately enlarged RV with mild-moderate reduction in function, severe TR, moderate MR, mild-moderate CT. Troponins 0.45, 0.68, 0.73, 0.76, 0.67. BNP 3725. Chest CT moderate bilateral pleural effusions with associated atelectasis. Ascites and subcutaneous edema, cardiomegaly. Past Med Surg Social Fam HX - Past Medical History Medical history: arthritis, coronary artery disease, diabetes, dialysis, hypertension, renal disease, other Psychiatric history: no psych history - Past Surgical History Surgical History: coronary bypass (CABG), pacemaker/AICD, other (Dialysis access ) - Social History Smoking Status: Never smoker Smokeless Tobacco Status: No Alcohol use: none Drug use: none - Family History Mother Hx Family Cardiac Disorders: Yes (CAD) Medications and Allergies Aspirin [Adult Low Dose Aspirin EC] 81 mg PO DAILY 02/14/15 [History] Insulin Glargine,Hum.rec.anlog [Lantus Solostar] 10 unit SQ HS 02/14/15 [History ] Simvastatin [Zocor] 40 mg PO DAILY 02/14/15 [History] Albuterol Sulfate [Proair Hfa] 2 puff BID PRN 02/17/15 [History] Multivitamin/Iron/Folic Acid [Centrum Complete Multivit Tab] 1 each PO DAILY [History] HYDROcodone/Acet 5/325 mg [[place] 5-325 mg] 1 tab PO Q6H #14 tab 04/15/17 [Rx] Biotin 10 mg PO DAILY 05/11/17 [History] Bumetanide [Bumex] 2 mg PO BID 05/11/17 [History] Celecoxib [Celebrex] 100 mg PO BID 05/11/17 [History] Insulin LISPRO [Humalog Kwikpen U-100] 6 unit SQ TID 05/11/17 [History] Lactulose [Enulose] 30 ml PO BID 05/11/17 [History] Lidocaine Patch [Lidoderm 5% patch] 1 each TP DAILY 05/11/17 [History] Metoprolol XL (24 HR) Succ [Toprol XL] 25 mg PO DAILY 05/11/17 [History] Midodrine HCl 10 mg PO TID 05/11/17 [History] Ondansetron ODT [Zofran ODT] 4 mg PO BID PRN 05/11/17 [History] Pantoprazole Sodium 40 mg PO DAILY 05/11/17 [History] Sevelamer [Renvela] 800 mg PO TIDWM 05/11/17 [History] 3 Allergy/AdvReac Type Severity Reaction Status Date / Time Iodinated Contrast- Oral and Allergy Swelling Verified 02/17/15 11:02 IV Dye of [Iodinated Contrast Media - Lip/Tongue/Throat IV Dye] EUFEMIA Inhibitors AdvReac Hypotension Verified 02/17/15 11:02 adhesive tape AdvReac Rash Verified 02/17/15 11:05 All Systems Review: A 10-system review of systems was performed and is negative for pertinent findings except as documented above in the HPI. - Cardiovascular Cardiovascular: as per HPI, dyspnea at rest, dyspnea on exertion - Respiratory Respiratory: dyspnea Physical Examination Vital Signs, Last 4 Hours Temp Pulse Resp BP Pulse Ox 05/13/17 07:25 97.5 F L 132 16 85/47 98 Vital Signs Temp Pulse Resp BP Pulse Ox 05/13/17 07:25 97.5 F L 132 16 85/47 98 05/13/17 04:37 98.1 F 76 16 92/60 95 05/13/17 00:37 98.2 F 117 17 90/61 96 05/12/17 20:12 98.2 F 97 16 96/58 97 05/12/17 18:37 16 97 05/12/17 16:43 91 14 102/62 99 05/12/17 15:46 97.4 F L 91 14 102/62 99 05/12/17 11:04 97.8 F 99 20 100/64 95 Intake and Output 05/12/17 05/13/17 05/13/17 23:59 07:59 15:59 Intake Total 120 / 120 Balance 120 / 120 Intake: Oral 120 / 120 Other: Meal Dinner Percent of Meal Consumed 80% Stool Size Large Stool Consistency formed Stool Color Brown # Urine Diapers 0 1 # Bowel Movement Diapers 0 0 Weight 86 kg Blood Glucose* 188 177 Patient Weight 05/13/17 23:59 Weight 86 kg General: Conversant, No Apparent Distress HEENT: Atraumatic, Normocephaly, Mucus Membranes Moist Neck: Normal carotid pulses Cardiac: Other (irregularly irregular rhythm) Lungs: Other (diminished) Neuro: Alert and responsive, No focal deficits noted Abdomen: Soft, Non-Tender Skin: No rashes noted on visualized skin Musculoskeletal: No Chest Wall Tenderness Extremities: No Clubbing, No Cyanosis, No Edema, Normal Pulses Results 05/13/17 04:22 05/13/17 04:22 Lab Results 05/13/17 05/13/17 05/13/17 03:28 04:22 04:22 WBC 7.9 Hgb 12.6 Hct 40.3 Plt Count 85 L Sodium 138 Potassium 5.2 H Chloride 99 Carbon Dioxide 22 BUN 39 H D Creatinine 5.07 H Glucose 191 H Calcium 9.7 Troponin I 0.67 H* Short CBC 05/13/17 Range/Units 04:22 WBC 7.9 (4.3-11.1) K/mcL Hgb 12.6 (11.5-15.4) g/dL Hct 40.3 (35.3-44.9) % Plt Count 85 L (140-400) K/mcL BMP 05/13/17 Range/Units 04:22 Sodium 138 (136-145) mEq/L Potassium 5.2 H (3.5-4.5) mEq/L Chloride 99 (98-109) mEq/L Carbon Dioxide 22 (19-29) mEq/L BUN 39 H D (7-20) mg/dL Creatinine 5.07 H (0.57-1.11) mg/dL Glucose 191 H (70-99) mg/dL Calcium 9.7 (8.6-10.8) mg/dL Cardiac Enzymes 05/13/17 Range/Units 03:28 Troponin I 0.67 H* (0-0.03) ng/mL Impressions Echocardiogram 05/12/17 15:41 Impressions: LVEF 25%. Severe LV systolic dysfunction. Atypical septal motion consistent with paced rhythm. Indeterminate diastolic function. Moderately enlarged RV with mild-moderate reduction in function. Severe tricuspid regurgitation. Moderate mitral regurgitation. Mild-moderate pulmonic regurgitation. Probably underestimated RVSP, 32 mmHg. A device lead was visualized in the right atrium and right ventricle. Pleural effusion. No prior echo for comparison. Left Ventricular Wall Motion: Rest Echo Findings The apex, apical inferior, mid inferior, basal inferior, apical anterior, mid anterior, basal anterior, apical lateral, mid anterior lateral, basal anterior lateral, mid inferior lateral and basal inferior lateral maldonado were hypokinetic. The apical septal, mid inferior septal, basal inferior septal, mid anterior septal and basal anterior septal maldonado were dyskinetic. Findings: Study Quality * Technically challenging windows. ECG Findings * Paced rhythm. Left Ventricle * Atypical septal motion consistent with paced rhythm. * Normal LV size and wall thickness. * Indeterminate diastolic function. * LVEF 25%. Right Ventricle * Moderately enlarged with mild-moderate reduction in function. Left Atrium * Moderately-severely enlarged. Right Atrium * Severely dilated right atrium. Aortic Valve * No aortic regurgitation. * Trileaflet aortic valve. * No aortic stenosis. Tricuspid Valve * Normal tricuspid valve structure. * Severe tricuspid regurgitation. * No pulmonary hypertension. * Estimated RA pressure is 8 mmHg. * Estimated RVSP is 32 mmHg. Pulmonic Valve * Pulmonic valve is not well visualized. * No pulmonic stenosis. * Mild-moderate pulmonic regurgitation. Pulmonary Artery * Pulmonary artery not well visualized. Aorta * Normally sized aortic root. Pericardium * There is a trivial pericardial effusion present. Device lead * A device lead was visualized in the right atrium and right ventricle. Mitral Valve * Moderate mitral regurgitation. * No mitral stenosis. * Mildly thickened mitral valve leaflets. Interatrial Septum * No evidence of PFO by color Doppler. IVC * The IVC is dilated. * < 50% respiratory change. Chest CT 05/13/17 07:44 IMPRESSION: 1. Moderate bilateral pleural effusions with associated atelectasis. Ascites and subcutaneous edema. 2. Cardiomegaly. D/ / Sawyer Ochoa MD / Sawyer Ochoa MD Interpreting Provider: Sawyer Ochoa MD Lumbar Spine CT 05/13/17 07:56 IMPRESSION: 1. Worsening osteodiscitis at L4-L5. There is prevertebral phlegmon extending along the anterior margin of the L5 vertebral body. 2. Severe central spinal canal narrowing at L4-L5 with moderate-severe bilateral foraminal narrowing at this level. 3. Moderate central spinal canal narrowing at L3-L4. 4. Atherosclerotic disease. 5. Gallstones. 6. Bilateral pleural effusions and ascites. 7. Colonic diverticulosis. D/ / 05/13/2017 09:15:48 Emory Leblanc MD / ellen Interpreting Provider: Emory Leblanc MD Active Medications Acetaminophen (Tylenol) 650 mg PO Q6HR PRN PRN Reason: Mild Pain/Headache Stop: 11/11/17 14:14 Last Admin: 05/13/17 04:55 Dose: 650 mg Hydrocodone Bitart/Acetaminophen ([place] 5-325 Mg) 1 tab PO Q6H PRN PRN Reason: Moderate to Severe Pain Stop: 11/10/17 15:31 Albuterol Sulfate (Albuterol Inhaler) 2 puff IH BID PRN PRN Reason: Shortness Of Breath Stop: 11/10/17 15:19 Last Admin: 05/12/17 18:42 Dose: 2 puff Aspirin (Aspirin Ec) 81 mg PO DAILY [facility] Stop: 11/11/17 09:01 Last Admin: 05/12/17 09:21 Dose: 81 mg Dextrose/Water (Dextrose 50% (Syg)) 25 ml IVP AD PRN PRN Reason: Hypoglycemia Stop: 11/10/17 14:46 Docusate Sodium (Colace) 100 mg PO BID PRN; Protocol PRN Reason: Constipation Stop: 11/10/17 20:56 Last Admin: 05/12/17 09:32 Dose: 100 mg Glucagon (Glucagen) 1 mg IM ONCE PRN PRN Reason: Hypoglycemia Stop: 11/10/17 14:46 Glucose (Gluctose) 15 gm PO ONCE PRN PRN Reason: Hypoglycemia Stop: 11/10/17 14:46 Glucose (Gluctose) 30 gm PO ONCE PRN PRN Reason: Hypoglycemia Stop: 11/10/17 14:46 Heparin Sodium (Porcine) (Heparin) 5,000 unit SQ Q12HCO KEVIN Stop: 11/11/17 18:01 Last Admin: 05/13/17 04:55 Dose: 5,000 unit Sodium Chloride (0.9 % Sodium Chloride) 1,000 mls @ 0 mls/hr PRIME .Q0M KEVIN PRN Reason: As Directed Stop: 11/10/17 14:01 Dextrose (Dextrose 5%) 1,000 mls @ 100 mls/hr IVC .Q10H PRN PRN Reason: HYPOGLYCEMIA Stop: 11/10/17 14:46 Vancomycin HCl 1,250 mg/ (Dextrose) 250 mls @ 167 mls/hr IVPB RPHPROT KEVIN PRN Reason: Protocol Stop: 11/12/17 08:01 Sodium Chloride (0.9 % Sodium Chloride) 1,000 mls @ 100 mls/hr IVC .Q10H KEVIN Stop: 05/14/17 03:59 Sodium Chloride (0.9 % Sodium Chloride) 250 mls @ 937.5 mls/hr IVC .Q16M PRN PRN Reason: Hypotension Stop: 11/12/17 08:08 Insulin Detemir (Levemir) 10 unit SQ HS KEVIN Stop: 11/10/17 21:01 Last Admin: 05/12/17 20:39 Dose: 10 unit Insulin Human Lispro (Humalog) 0 units SQ TIDAC KEVIN PRN Reason: Protocol Stop: 11/10/17 16:31 Last Admin: 05/13/17 08:50 Dose: Not Given Insulin Human Lispro (Humalog) 0 units SQ HS KEVIN PRN Reason: Protocol Stop: 11/10/17 21:01 Last Admin: 05/12/17 20:38 Dose: Not Given Lidocaine HCl (Lidoderm 5% Patch) 1 each TP DAILY [facility] Stop: 11/11/17 09:01 Last Admin: 05/13/17 08:49 Dose: 1 each Metoprolol Succinate (Toprol Xl) 25 mg PO DAILY [facility] Stop: 11/12/17 09:01 Last Admin: 05/13/17 08:51 Dose: Not Given Midodrine (Proamatine) 10 mg PO TID [facility] Stop: 11/11/17 15:01 Last Admin: 05/12/17 20:39 Dose: 10 mg Multivitamins/Calcium (Thera M Plus) 1 tab PO DAILY [facility] Stop: 11/11/17 09:01 Last Admin: 05/13/17 08:50 Dose: 1 tab Naloxone HCl (Narcan) 0.4 mg IVP Q2MIN PRN PRN Reason: Opioid Reversal Stop: 11/10/17 14:46 Omeprazole (Prilosec) 20 mg PO DAILY [facility] Stop: 11/11/17 09:01 Last Admin: 05/13/17 08:50 Dose: 20 mg Ondansetron HCl (Zofran Odt) 4 mg PO BID PRN PRN Reason: Nausea Stop: 11/10/17 15:43 Last Admin: 05/13/17 06:42 Dose: 4 mg Polyethylene Glycol (Miralax) 17 gm PO DAILY PRN PRN Reason: Constipation Stop: 11/10/17 20:56 Sevelamer HCl (Renvela) 800 mg PO TIDWM KEVIN Stop: 11/10/17 17:01 Last Admin: 05/13/17 08:50 Dose: 800 mg Simvastatin (Zocor) 40 mg PO DAILY KEVIN PRN Reason: Protocol Stop: 11/11/17 09:01 Last Admin: 05/12/17 09:20 Dose: 40 mg - Imaging and Cardiology Echo: report reviewed - EKG Interpretation EKG results cardiology: personally reviewed, other (12 hr tele AVG HR 120, A-Fib ) Consult Discharge Plan - Plan Referrals: Luz Maria Roberts DO [Primary Care Provider] - (Patient will follow up with [facility] PCP)
--- NOTE | 2017-05-13 09:48 | Internal Med Progress Note ---
Date of Encounter: 05/13/17 Time of Encounter: 08:15 - Subjective Interval history: Patient seen and examined this morning. Patient denied having any chest discomfort. Admitted to having some pain in her left hip. Patient scheduled to go in for dialysis today. Admits to having nausea as well; had one episode of vomiting earlier this morning. Denies shortness of breath. - Constitutional Vitals: Temp Pulse Resp BP Pulse Ox 97.5 F L 132 16 85/47 98 05/13/17 07:25 05/13/17 07:25 05/13/17 07:25 05/13/17 07:25 05/13/17 07:25 General appearance: Present: cooperative, mild distress, A&O X 3, answers questions appropriately - Head Head exam: Present: atraumatic, normocephalic - Eye Eye exam: Present: PERRL, conjuntiva pink, sclera anicteric Pupils: Present: PERRL - Neck Neck exam general surgery: Present: supple, trachea midline. Absent: lymphadenopathy - Respiratory Respiratory exam: Present: decreased breath sounds. Absent: accessory muscle use, rales, rhonchi, wheezes - Cardiovascular Cardiovascular exam: Present: +S1, +S2. Absent: diastolic murmur, gallop, rubs , systolic murmur - Extremities Exam Extremities exam: Present: warm, radial pulses palpable and symmetrical. Absent : calf tenderness, cyanotic, pedal edema - Skin Skin exam: Present: dry, intact Internal Medicine: Result - Labs CBC & Chem 7: 05/13/17 04:22 05/13/17 04:22 Labs: Short CBC 05/13/17 Range/Units 04:22 WBC 7.9 (4.3-11.1) K/mcL Hgb 12.6 (11.5-15.4) g/dL Hct 40.3 (35.3-44.9) % Plt Count 85 L (140-400) K/mcL BMP 05/13/17 04:22 Sodium 138 Potassium 5.2 H Chloride 99 Carbon Dioxide 22 BUN 39 H D Creatinine 5.07 H Glucose 191 H Calcium 9.7 Cardiac Enzymes 05/13/17 Range/Units 03:28 Troponin I 0.67 H* (0-0.03) ng/mL - Impressions Impressions Echocardiogram 05/12/17 15:41 Impressions: LVEF 25%. Severe LV systolic dysfunction. Atypical septal motion consistent with paced rhythm. Indeterminate diastolic function. Moderately enlarged RV with mild-moderate reduction in function. Severe tricuspid regurgitation. Moderate mitral regurgitation. Mild-moderate pulmonic regurgitation. Probably underestimated RVSP, 32 mmHg. A device lead was visualized in the right atrium and right ventricle. Pleural effusion. No prior echo for comparison. Left Ventricular Wall Motion: Rest Echo Findings The apex, apical inferior, mid inferior, basal inferior, apical anterior, mid anterior, basal anterior, apical lateral, mid anterior lateral, basal anterior lateral, mid inferior lateral and basal inferior lateral maldonado were hypokinetic. The apical septal, mid inferior septal, basal inferior septal, mid anterior septal and basal anterior septal maldonado were dyskinetic. Findings: Study Quality * Technically challenging windows. ECG Findings * Paced rhythm. Left Ventricle * Atypical septal motion consistent with paced rhythm. * Normal LV size and wall thickness. * Indeterminate diastolic function. * LVEF 25%. Right Ventricle * Moderately enlarged with mild-moderate reduction in function. Left Atrium * Moderately-severely enlarged. Right Atrium * Severely dilated right atrium. Aortic Valve * No aortic regurgitation. * Trileaflet aortic valve. * No aortic stenosis. Tricuspid Valve * Normal tricuspid valve structure. * Severe tricuspid regurgitation. * No pulmonary hypertension. * Estimated RA pressure is 8 mmHg. * Estimated RVSP is 32 mmHg. Pulmonic Valve * Pulmonic valve is not well visualized. * No pulmonic stenosis. * Mild-moderate pulmonic regurgitation. Pulmonary Artery * Pulmonary artery not well visualized. Aorta * Normally sized aortic root. Pericardium * There is a trivial pericardial effusion present. Device lead * A device lead was visualized in the right atrium and right ventricle. Mitral Valve * Moderate mitral regurgitation. * No mitral stenosis. * Mildly thickened mitral valve leaflets. Interatrial Septum * No evidence of PFO by color Doppler. IVC * The IVC is dilated. * < 50% respiratory change. Chest CT 05/13/17 07:44 IMPRESSION: 1. Moderate bilateral pleural effusions with associated atelectasis. Ascites and subcutaneous edema. 2. Cardiomegaly. D/ / Sawyer Ochoa MD / Sawyer Ochoa MD Interpreting Provider: Sawyer Ochoa MD Lumbar Spine CT 05/13/17 07:56 IMPRESSION: 1. Worsening osteodiscitis at L4-L5. There is prevertebral phlegmon extending along the anterior margin of the L5 vertebral body. 2. Severe central spinal canal narrowing at L4-L5 with moderate-severe bilateral foraminal narrowing at this level. 3. Moderate central spinal canal narrowing at L3-L4. 4. Atherosclerotic disease. 5. Gallstones. 6. Bilateral pleural effusions and ascites. 7. Colonic diverticulosis. D/ / 05/13/2017 09:15:48 Emory Leblanc MD / ellen Interpreting Provider: Emory Leblanc MD - VTE Documentation of Mechanical Device: Intermittent pneumatic compression device Consult Discharge Plan - Plan Referrals: Luz Maria Roberts DO [Primary Care Provider] - (Patient will follow up with [facility] PCP)
[2017-05-13] MEDS ORDERED: Ringers Solution, Lactated 1,000 ML IVC ONE ×2 (10:18→10:33)
[2017-05-13] MEDS ORDERED: Vancomycin 1,500 MG in D5% in Water 250 ML IVPB ONE (10:19)
[2017-05-13] MEDS ORDERED: Vancomycin 1 EACH in D5% in Water 250 ML IVPB PRN (10:30)
[2017-05-13] MEDS ORDERED: Amiodarone Premix 150 MG/100 ML BAG IVPB ONE (10:39)
[2017-05-13] MEDS ORDERED: Amiodarone Premix 360 MG/200 ML BAG IVC ONE (10:39)
[2017-05-13] MEDS ORDERED: *HR* Heparin 5,000 UNIT/ML VIAL IVP PRN ×2 (10:40)
[2017-05-13] MEDS ORDERED: *HR* Heparin 5,000 UNIT/ML VIAL IVP ONE (10:40)
[2017-05-13] MEDS ORDERED: Heparin 25,000 UNIT/500 ML D5W 25,000 UNIT/500 ML BAG IVC SCH (10:45)
[2017-05-13] MEDS ORDERED: Amiodarone Premix 360 MG/200 ML BAG IVC SCH (10:45)
--- NOTE | 2017-05-13 10:49 | Discharge Summary ---
<Gian Shelby - Last Filed: 05/13/17 10:49> Date of Encounter: 05/13/17 Time of Encounter: 09:00 - Discharge Diagnosis (1) Spinal abscess Priority: Primary Status: Acute (2) CHF (congestive heart failure) Priority: Primary Status: Acute Qualifiers: Congestive heart failure type: systolic Congestive heart failure chronicity : acute on chronic Qualified Code(s): I50.23 - Acute on chronic systolic ( congestive) heart failure (3) ESRD (end stage renal disease) on dialysis Priority: Secondary Status: Acute (4) Elevated troponin Priority: Secondary Status: Acute (5) CAD (coronary artery disease) Priority: Secondary Status: Acute Qualifiers: Coronary Disease-Associated Artery/Lesion type: bypass graft [place] vs. transplanted heart: [place] heart Associated angina: without angina Qualified Code(s): I25.810 - Atherosclerosis of coronary artery bypass graft(s) without angina pectoris - Discharge Medications Home Medications: Aspirin [Adult Low Dose Aspirin EC] 81 mg PO DAILY 02/14/15 [History] Insulin Glargine,Hum.rec.anlog [Lantus Solostar] 10 unit SQ HS 02/14/15 [History ] Simvastatin [Zocor] 40 mg PO DAILY 02/14/15 [History] Albuterol Sulfate [Proair Hfa] 2 puff BID PRN 02/17/15 [History] Multivitamin/Iron/Folic Acid [Centrum Complete Multivit Tab] 1 each PO DAILY [History] HYDROcodone/Acet 5/325 mg [[place] 5-325 mg] 1 tab PO Q6H #14 tab 04/15/17 [Rx] Biotin 10 mg PO DAILY 05/11/17 [History] Bumetanide [Bumex] 2 mg PO BID 05/11/17 [History] Celecoxib [Celebrex] 100 mg PO BID 05/11/17 [History] Insulin LISPRO [Humalog Kwikpen U-100] 6 unit SQ TID 05/11/17 [History] Lactulose [Enulose] 30 ml PO BID 05/11/17 [History] Lidocaine Patch [Lidoderm 5% patch] 1 each TP DAILY 05/11/17 [History] Metoprolol XL (24 HR) Succ [Toprol XL] 25 mg PO DAILY 05/11/17 [History] Midodrine HCl 10 mg PO TID 05/11/17 [History] Ondansetron ODT [Zofran ODT] 4 mg PO BID PRN 05/11/17 [History] Pantoprazole Sodium 40 mg PO DAILY 05/11/17 [History] Sevelamer [Renvela] 800 mg PO TIDWM 05/11/17 [History] Allergies/Adverse Reactions: 3 Allergy/AdvReac Type Severity Reaction Status Date / Time Iodinated Contrast- Oral and Allergy Swelling Verified 02/17/15 11:02 IV Dye of [Iodinated Contrast Media - Lip/Tongue/Throat IV Dye] EUFEMIA Inhibitors AdvReac Hypotension Verified 02/17/15 11:02 adhesive tape AdvReac Rash Verified 02/17/15 11:05 Procedures/tests Complete & Pending: Procedures Performed prior 72 hours Category Date Time Status CT chest w/o contrast [CT chest wo con] [CT] Stat Cat Scan 05/13/17 07:[address] lumbar spine wo con [CT] Routine Cat Scan 05/13/17 07:56 Completed ECG 12 lead ECG [ECG] Stat Y 05/13/17 01:23 Completed EKG [ECG 12 lead ECG] [ECG] Stat Y 05/11/17 18:44 Completed EKG [ECG 12 lead ECG] [ECG] Stat Y 05/13/17 01:24 Ordered EV echocardiogram Routine Y 05/12/17 15:41 Completed Date of admission: 05/11/17 15:14 Primary care physician: Luz Maria Roberts DO Consults: 05/11/17 16:13 Consult to Nutrition [CONS] Routine Comment: Consulting Provider: NUTRITION Reason for Dietary Consult: MST Score 05/12/17 15:24 Consult to Cardiology [CONS] Routine Comment: Consulting Provider: Cardiology Cristy Reason for Consult: elevated troponin Call Completed: No 05/13/17 08:15 Consult to Dialysis [CONS] ONCE Discharging clinician: Gian Shelby Anticipated date of discharge: 05/13/17 - Patient Status Disposition: Transfer Critical Access Hosp Condition: Good Overall status at discharge: patient is progressing back to baseline - Discharge Instructions Follow Up With: Luz Maria Roberts DO [Primary Care Provider] - (Patient will follow up with ECF PCP) - Diet and Activity Activity: increase activity as tolerated Diet: advance to your usual diet Hospital course: Ms. Andres is a 71 year old female with a PMH of arthritis, CAD, DM, HD, HTN , ESRD, prior end STEMI, CABG, pacer with AICD and congestive heart failure who presented to the hospital with the chief complaint of shortness of breath. Patient had been complaining of shortness of breath for the last couple weeks. On the morning of arrival, patient noted a severe shortness of breath. She was hypoxic requiring oxygen support to maintain O2 saturation. Patient is a hemodialysis patient previously being treated in [place]. Her last dialysis treatment was approximately 1 week prior to admission. She was supposed to receive a dialysis treatment on the day of arrival to the hospital. Due to her shortness of breath, she presents to the emergency department. Chest x-ray revealed the presence of pulmonary vascular congestion and small bilateral pleural effusions. Patient also had 1+ pitting edema bilaterally in her lower 70s. The patient was admitted for fluid overload secondary to CHF. Patient was taken in for dialysis. Condition seems to improved. BNP was elevated at over 3000. Patient was placed on fluid restriction. Last echocardiogram demonstrated an ejection fraction of 25%. Patient was recently treated at [facility] for infection in her spine. Prior to this event, patient was able to walk with the assistance of a walker, has not been able to walk since. Patient was placed on long-term antibiotics: Ancef 2 mg on Tuesday and Tuesday. She was also placed on Omnicef. On 05/13/17, patient was noted to be hypotensive. She complained of some nausea and vomiting. She was scheduled to go in for hemodialysis treatment from treatment of fluid overload. On 05/13/17, a CT scan of the lumbar spine was obtained to further evaluate patient's spine. According to the CT report, patient has worsening osteo- discitis at L4-L5. There is a pre-vertebral phlegmon extending along the anterior margin of the L5 vertebral body. Due to this condition, patient cannot be managed at this hospital any further. Patient will need to be transferred for neurosurgical treatment. Patient has agreed to transfer to [facility]. Patient's blood pressure has been dropping. On admission, patient's blood pressure is 122/106. Blood pressure currently 85/47. Multiple attempts have been made to establish IV access. Patient refuses to lie flat, and has multiple collapsed veins. No peripheral access was obtained. Patient will be transferred to the ICU; possible placement of central line. Patient will need IV vancomycin. Plan is for an ICU to ICU transfer from [facility] to [facility]. - Time Spent with Patient Total time spent providing and/or coordinating discharge services: - Constitutional Vitals: Temp Pulse Resp BP Pulse Ox 97.5 F L 132 16 85/47 98 05/13/17 07:25 05/13/17 07:25 05/13/17 07:25 05/13/17 07:25 05/13/17 07:25 General appearance: Present: cooperative, mild distress, A&O X 3, answers questions appropriately - Head Head exam: Present: atraumatic, normocephalic - Eye Eye exam: Present: PERRL, conjuntiva pink, sclera anicteric Pupils: Present: PERRL - Respiratory Respiratory exam: Present: decreased breath sounds, prolonged expiratory phase, rales - Cardiovascular Cardiovascular exam: Present: +S1, +S2, tachycardia. Absent: diastolic murmur, gallop, rubs, systolic murmur - Skin Skin exam: Present: dry, intact - VTE Documentation of Mechanical Device: Intermittent pneumatic compression device <Dustin Kang - Last Filed: 05/13/17 15:23> Date of Encounter: 05/13/17 - Discharge Diagnosis (1) CHF (congestive heart failure) Status: Acute Qualifiers: Congestive heart failure type: systolic Congestive heart failure chronicity : acute on chronic Qualified Code(s): I50.23 - Acute on chronic systolic ( congestive) heart failure (2) Elevated troponin Status: Acute (3) Streptococcal infection, unspecified site Status: Acute (4) Breast cancer Status: Acute Qualifiers: Breast location: unspecified site of breast Estrogen receptor status: unspecified Patient sex: female Laterality: unspecified laterality Qualified Code(s): C50.919 - Malignant neoplasm of unspecified site of unspecified female breast (5) CAD (coronary artery disease) Status: Acute Qualifiers: Coronary Disease-Associated Artery/Lesion type: bypass graft [place] vs. transplanted heart: [place] heart Associated angina: without angina Qualified Code(s): I25.810 - Atherosclerosis of coronary artery bypass graft(s) without angina pectoris (6) ESRD (end stage renal disease) on dialysis Status: Acute Procedures/tests Complete & Pending: Procedures Performed prior 72 hours Category Date Time Status CT chest w/o contrast [CT chest wo con] [CT] Stat Cat Scan 05/13/17 07:[address] lumbar spine wo con [CT] Routine Cat Scan 05/13/17 07:56 Completed ECG 12 lead ECG [ECG] Stat Y 05/13/17 01:23 Completed EKG [ECG 12 lead ECG] [ECG] Stat Y 05/11/17 18:44 Completed EKG [ECG 12 lead ECG] [ECG] Stat Y 05/13/17 01:24 Ordered EV echocardiogram Routine Y 05/12/17 15:41 Completed Date of admission: 05/11/17 15:14 Primary care physician: Luz Maria Roberts DO Consults: 05/11/17 16:13 Consult to Nutrition [CONS] Routine Comment: Consulting Provider: NUTRITION Reason for Dietary Consult: MST Score 05/12/17 15:24 Consult to Cardiology [CONS] Routine Comment: Consulting Provider: Cardiology Cristy Reason for Consult: elevated troponin Call Completed: No 05/13/17 08:15 Consult to Dialysis [CONS] ONCE - Patient Status Overall status at discharge: patient is not back to baseline - Diet and Activity Activity: other (Bedrest) Hospital course: Ms. Andres is a 71 year old female - Time Spent with Patient Total time spent providing and/or coordinating discharge services: - Constitutional Vitals: Temp Pulse Resp BP Pulse Ox 98.2 F 128 23 67/39 95 05/13/17 10:59 05/13/17 13:00 05/13/17 13:00 05/13/17 13:00 05/13/17 13:00 - Attending Attestation Hypotension secondary to worsening of today skydives at L4-L5 with prevertebral phlegmon extending to the anterior margin of L5 vertebral body, severe central spinal canal narrowing at L4-L5 with moderate to severe bilateral foraminal narrowing. Unstable, was transferred today ICU and started on norepinephrine Start aggressive hydration Central line placed. Start vancomycin IV and transfer to [facility] Time spent on this critical-care assessment/process 60 minutes I examined this patient and my medical decision-making was reviewed with the Resident Physician. I agree with the documented findings, disposition and treatment plan as described except to the extent set forth below.
--- NOTE | 2017-05-13 11:27 | Event Note ---
Date of Encounter: 05/13/17 Time of Encounter: 11:10 Patient was transferred to ICU. Critical condition, hypotensive. Hemodynamically unstable for HD today. Line placement being attempted at present. Spinal infection worsening on CT. To be transferred to [facility], awaiting bed. Will continue to monitor.
[2017-05-13] MEDS: Aspirin Enteric Coated 81 MG Tablet PO SCH (12:37)
--- NOTE | 2017-05-13 12:41 | Procedure Note ---
Date of procedure: 05/13/17 Pre-op diagnosis: Hypotension/lack of venous access Post-op diagnosis: same Procedure: Central venous catheter placement: Written consent was obtained from the patient. The patient could not be positioned in the ideal position for line placement given her severe back pain related to her underlying spinal infection. The left internal jugular vein was surveyed using ultrasound and deemed to be a suitable target. The area was cleaned and draped in the usual sterile fashion. The skin and soft tissues were anesthetized using 1% lidocaine. Under ultrasound guidance introducer needle was advanced into the left internal jugular vein. Dark red, nonpulsatile blood flow was returned. The guidewire was advanced through the introducer needle and resistance was encountered immediately. The guidewire was withdrawn and blood flow was present through the needle, the guidewire then again attempted to be advanced to the introducer needle and resistance was then again felt. The needle was then removed and pressure was held at the site of the left internal jugular vein for 5 minutes. Attention was then turned to the left femoral area which are surveyed using ultrasound and the left femoral vein was identified. The area was cleaned and draped in the usual sterile fashion. The area was anesthetized using 1% lidocaine. Under ultrasound guidance nutrition needle was advanced into the left femoral vein. Dark red, nonpulsatile blood flow was returned. The guidewire was advanced to the introducer needle and again resistance was felt immediately. The guidewire was withdrawn in blood flow was noted to continue. Again the guidewire was advanced to the needle and resistance was again felt. The needle was then removed and pressure was held for 5 minutes. The patient was then positioned in the supine position which was uncomfortable for the patient but allowed good visualization of the right femoral vein. The area was cleaned and draped in the usual sterile fashion. The area was anesthetized using 1% lidocaine. Introducer needle was advanced into the right femoral vein and dark red, nonpulsatile blood flow was returned. The guidewire was advanced through the needle inserted into the vein without resistance. The needle was then removed intact. The guidewire was visualized under ultrasound within the right femoral vein. A eshan in the skin was made, and the skin and soft tissues were dilated. A 20 cm, triple lumen catheter was advanced over the guidewire and into the vein. All 3 ports were tested and shown to draw blood and flush easily. The catheter was sutured in place at 2 points. Some oozing was noted at the catheter site. Biopatch was applied and surgacell was placed over the catheter and Biopatch. Tegaderm was applied. Attempt at the left internal jugular site a postprocedure chest x-ray was ordered and preliminarily read by myself showed no evidence of pneumothorax. Official interpretation is pending. The patient tolerated the procedure well, there are no immediate complications. Anesthesia: local (Total of 15 mL 1% lidocaine) Surgeon: Satinder Stiles Estimated blood loss (cc): 30 Pathology: none sent Condition: critical Disposition: ICU
[2017-05-13 13:01] LABS: INR 1.4; Prothrombin Time 14.8 Seconds (9.4-12.1)
[2017-05-13 13:04] LABS: Activated Partial Thrombo Time 32.5 Seconds (26.0-36.0)
[2017-05-13] MEDS ORDERED: Norepinephrine 4 MG in D5% in Water 250 ML IVC SCH (13:30)
[2017-05-13 13:51] VITALS: BP 67/39
[2017-05-13] MEDS ORDERED: Aminoglycoside Consult 1 EACH MC ONE (13:53)
[2017-05-13] MEDS ORDERED: ceFAZolin 3,000 MG in D5% in Water 100 ML IVPB SCH (14:00)
--- NOTE | 2017-05-13 16:51 | Electrocardiograph Report ---
[address] [place], [place] [address] Test Date: 2017-05-13 Pat Name: Sonya Andres Department: 112 Room: [facility] Gender: F [employer]: SNEHA : 1945 Requested By: Richi Hebert Order Number: [id number] Reading MD: Julieth Grande Measurements Intervals [place] Rate: 128 P: -66 DC: 182 QRS: -61 QRSD: 162 T: 93 QT: 329 QTc: 405 Interpretive Statements ATRIAL FIBRILLATION RIGHT BUNDLE BRANCH BLOCK INFERIOR AND LATERAL MYOCARDIAL INFARCTION, INDETERMINATE AGE ARTIFACT LIMITS INTERPRETATION Electronically Signed On 05-13-2017 16:50:29 EST by Julieth Grande
[2017-05-13] MEDS ORDERED: ceFAZolin 3,000 MG in Water for inj. (sterile) 30 ML IVP SCH ×2 (18:00)
[2017-05-16] MEDS ORDERED: ceFAZolin 2,000 MG in Water for inj. (sterile) 20 ML IVP SCH ×2 (18:00)
== END 2017-05-13 13:54 | disposition critical access hospital (66) | DRG 291 ==
LOC: EMEROO 10:47 → 2ANU 10:47 → ICNU 05-13 10:29
PROVIDERS: ADMIT Family Medicine; ATTEND Internal Medicine